=== PATIENT | female | born 1990 | race Caucasian/White ===

== ENCOUNTER → 2020-09-10 11:32 | Outpatient (CLI) | payer OTHER, SELFPAY ==
--- NOTE | 2020-09-10 | DI.MRI.S_ITS ---
PROCEDURE: MR KNEE LT WO CON INDICATIONS: Pain in left knee TECHNIQUE: Noncontrast sagittal PD fast spin echo and T2 fast spin echo with fat saturation, sagittal 3-D FLASH with fat saturation; coronal T1 spin echo and PD fast spin echo with fat saturation, and axial PD fast spin echo with fat saturation through the knee. COMPARISON: None. FINDINGS: Image quality: Excellent. Menisci: The medial and lateral menisci demonstrate normal morphology and internal signal. The meniscal root ligaments appear intact. Cruciate ligaments: The anterior and posterior cruciate ligaments appear intact. Medial structures: The medial collateral ligament appears intact. Visualized portions of the pes anserinus tendons appear normal. No abnormal bursal fluid. Lateral structures: The lateral collateral ligament, long and short heads of the biceps femoris tendon appear intact. The popliteus tendon appears normal. Iliotibial band appears normal. Anterior structures: The quadriceps and patellar tendons appear intact. Moderate T2 signal elevation within the patellar tendon at the patellar insertion site Patellar alignment is normal. No femoral trochlear dysplasia or ventral trochlear prominence. Mild infrapatellar fat pad edema adjacent to the superior aspect of the patellar tendon. Bones and cartilage: No bone marrow contusions or fractures. Mild articular cartilage loss diffusely overlies the weight-bearing aspects of the medial femoral condyle and medial tibial plateau. Articular cartilage fibrillation overlies the medial and lateral patellar facets. Superimposed 8 mm diameter region of moderate articular cartilage loss overlies the medial patellar apex. Joint space: There is physiologic knee joint fluid. No Camarena's cyst. Normal appearing synovial plicae are incidentally noted. IMPRESSION: 1. Tricompartmental osteoarthritis with associated articular cartilage loss. 2. Patellar tendinitis. 3. No evidence of cruciate ligament nor meniscal tear. Dictated by: Michael Da Silva M.D. on 09/10/2020 at 12:31 Approved by: Michael Da Silva M.D. on 09/10/2020 at 12:33
== END ==
PROVIDERS: Referring Provider Student in an Organized Health Care Education/Training Program; Visit Provider Student in an Organized Health Care Education/Training Program
DX: M25.562 Pain in left knee (principal); M17.12 Unilateral primary osteoarthritis, left knee; M76.52 Patellar tendinitis, left knee
CPT/HCPCS: 73721